=== PATIENT | male | born 1960 ===

== ENCOUNTER 2020-09-19 02:15 | Inpatient (IN) | payer MEDICAID ==
[~2020-09-19] VITALS: Ht 177.8 cm; Wt 107.7 kg
--- NOTE | 2020-09-19 02:30 | NUR ---
PT TRANSFERRED FROM [facility] FOR A FACIAL ABCESS. PT THOUGHT IT WAS A TOOTH BUT IT IS IN THE JAW AREA. HX OF HTN. MED REC COMPLETE. PT HAS NO NEEDS AT THIS TIME. CALL LIGHT IN REACH
[2020-09-19] MEDS ORDERED: LOSA50TA14 PO (02:56)
[2020-09-19] MEDS ORDERED: SIMV20TA19 PO (02:56)
[2020-09-19] MEDS ORDERED: HYDROCHLOROTH12.5 MG PO (02:56)
[2020-09-19] MEDS ORDERED: PREG225C PO (02:56)
[2020-09-19] MEDS ORDERED: TRAM50TA2 PO (02:56)
[2020-09-19] MEDS ORDERED: MELO15TA24 PO (02:56)
[2020-09-19] MEDS ORDERED: OMEG-14 PO (02:56)
[2020-09-19] MEDS ORDERED: CLON0.1T22 PO (02:56)
[2020-09-19] MEDS ORDERED: DOXA1TAB2 PO (02:56)
[2020-09-19] MEDS ORDERED: HYDR50TA99 PO (02:56)
[2020-09-19] MEDS ORDERED: MORPHINE SULFATE 4 MG/ML, 1ML IVPush PRN (03:30)
[2020-09-19] MEDS ORDERED: ONDANSETRON 2MG/ML, 2ML ONE ×2 (03:30→12:13)
[2020-09-19] MEDS ORDERED: ONDANSETRON 2MG/ML, 2ML IVPush ONE (03:30)
[2020-09-19] MEDS ORDERED: MORPHINE SULFATE 4 MG/ML, 1ML ONE (03:31)
--- NOTE | 2020-09-19 03:41 | NUR ---
PT MEDICATED FOR PAIN. PT AMBULATED TO BATHROOM WITH A STEADY GAIT. VSS. PT TO BE ADMITTED
--- NOTE | 2020-09-19 03:49 | NUR ---
COVID SWAB DONE AND WALKED TO LAB.
[2020-09-19] MEDS ORDERED: ACETAMINOPHEN 325 MG TABLET PO PRN ×3 (04:00→13:00)
[2020-09-19] MEDS ORDERED: NS + 20MEQ KCL 1,000 ML IV SCH (04:00)
[2020-09-19] MEDS ORDERED: LABETALOL 5MG/ML, 20ML IVPush PRN (04:00)
[2020-09-19] MEDS ORDERED: morphine SULFATE 10 MG/ML, 1ML IVPush PRN (04:00)
[2020-09-19] MEDS ORDERED: ONDANSETRON 2MG/ML, 2ML IVPush PRN (04:00)
[2020-09-19] MEDS: AMPICILLIN/SULBACTAM 3 GM in SODIUM CHLORIDE 0.9% 100 ML IV SCH ×3 (06:39→17:32)
[2020-09-19 07:38] VITALS: BP 122/83
[2020-09-19] MEDS ORDERED: LIDOCAINE/PF 1%, 30ML ONE (09:35)
[2020-09-19] MEDS ORDERED: EPINEPHRINE 1 MG/ML, 1ML ONE (09:36)
[2020-09-19] MEDS ORDERED: FENTANYL PF 100 MCG/2ML ONE (10:29)
[2020-09-19] MEDS ORDERED: MIDAZOLAM 1 MG/ML, 2ML ONE (10:52)
[2020-09-19] MEDS ORDERED: DEXMEDETOMIDINE 200 MCG/2 ML ONE (11:11)
[2020-09-19] MEDS ORDERED: LIDOCAINE 1%-EPI 1:100K, 30ML INFIL ONE (11:49)
[2020-09-19] MEDS ORDERED: FENTANYL PF 250 MCG/5ML ONE (11:55)
[2020-09-19] MEDS ORDERED: MEPERIDINE/PF 25MG/0.5ML IVPush PRN ×2 (12:00→13:00)
[2020-09-19] MEDS ORDERED: HYDROmorphone 2 MG/ML, 1ML IVPush PRN ×2 (12:00→13:00)
[2020-09-19] MEDS ORDERED: DIAZEPAM 5 MG/ML, 2ML IVPush PRN ×2 (12:00→13:00)
[2020-09-19] MEDS ORDERED: PROMETHAZINE 25 MG/ML, 1ML IV PRN ×2 (12:00→13:00)
[2020-09-19] MEDS ORDERED: FENTANYL PF 100 MCG/2ML IV PRN ×2 (12:00→13:00)
[2020-09-19] MEDS ORDERED: OXYcodone 5 MG/5 ML ORAL.SOL UDC PO PRN ×2 (12:00→13:00)
[2020-09-19] MEDS ORDERED: ALBUTEROL SULFATE 2.5 MG/3 ML NPPB PRN ×2 (12:00→13:00)
[2020-09-19] MEDS ORDERED: LABETALOL 5MG/ML, 20ML IV PRN ×2 (12:00→13:00)
[2020-09-19] MEDS ORDERED: KETOROLAC 30 MG/1 ML IV PRN ×2 (12:00→13:00)
[2020-09-19] MEDS ORDERED: hydrALAzine 20 MG/ML, 1ML IV PRN ×2 (12:00→13:00)
[2020-09-19] MEDS ORDERED: DEXAMETHASONE 4 MG/ML, 1ML ONE (12:13)
[2020-09-19] MEDS ORDERED: ROCURONIUM 10MG/ML,5ML ONE (12:13)
[2020-09-19] MEDS ORDERED: NEOSTIGMINE 1 MG/ML, 10ML ONE (12:13)
[2020-09-19] MEDS ORDERED: SUCCINYLCHOLINE 20 MG/ML, 10ML ONE (12:13)
[2020-09-19] MEDS ORDERED: CEFAZOLIN 1,000 MG ONE (12:13)
[2020-09-19] MEDS ORDERED: GLYCOPYRROLATE 0.2MG/1ML, 5ML ONE (12:13)
[2020-09-19] MEDS ORDERED: PROPOFOL 10 MG/ML, 20ML ONE (12:13)
[2020-09-19] MEDS: LACTATED RINGERS 1,000 ML IV SCH (17:32)
[2020-09-19 20:00] VITALS: BP 115/71
[2020-09-20] MEDS: AMPICILLIN/SULBACTAM 3 GM in SODIUM CHLORIDE 0.9% 100 ML IV SCH ×3 (00:07→11:13)
[2020-09-20 00:23] VITALS: BP 126/75
[2020-09-20 03:10] VITALS: BP 126/73
[2020-09-20 05:34] LABS: BASOPHILS % (AUTO) 1 % (0-1); EOSINOPHILS % (AUTO) 0 % (1-7); LYMPHOCYTES % (AUTO) 13 % (22-44); MEAN CORPUSCULAR HEMOGLOBIN 30.4 pg (27.5-34.5); MEAN CORPUSCULAR HGB CONC 33.3 g/dL (33.2-36.2); MONOCYTES % (AUTO) 7 % (2-9); NEUTROPHILS % (AUTO) 80 % (42-75); PLATELET COUNT 386 x10^3/uL (130-400); RED BLOOD COUNT 4.49 x10^6/uL (4.38-5.82); RED CELL DISTRIBUTION WIDTH 12.9 % (9.4-14.8)
[2020-09-20 05:45] LABS: CHLORIDE 103 mmol/L (98-107)
[2020-09-20 05:52] LABS: ANION GAP 5 mmol/L (5-15); CALCIUM 8.3 mg/dL (8.5-10.1); CREATININE 0.81 mg/dL (0.7-1.3)
[2020-09-20] MEDS: LACTATED RINGERS 1,000 ML IV SCH (05:57)
[2020-09-20 06:23] LABS: MD SCAN
[2020-09-20 08:00] VITALS: BP 128/72
[2020-09-20 12:55] VITALS: BP 132/82
[2020-09-20] MEDS ORDERED: AMOX1TAB64 PO (13:15)
[2020-09-20] MEDS ORDERED: HYDR-3240 PO (13:15)
[2020-09-20] MEDS ORDERED: DOXY-162 PO (13:15)
[2020-09-20] MEDS: PREGABALIN 75 MG CAPSULE PO ONE ×2 (13:26→13:29)
[2020-09-20] MEDS ORDERED: FLU VACC QS2020-21(6MOS UP)/PF 60MCG/0.5 ML SYR IM-VACC ONE (15:00)
== END 2020-09-20 15:50 | disposition home or self-care (01) | DRG 364 ==
LOC: ED 03:16 → EDIP 03:27 → 4NE 04:15 → DCLOUNGE 09-20 15:40
PROVIDERS: ADMIT Family Medicine; ATTEND Internal Medicine
PROC: 0J950ZZ Drainage of Left Neck Subcutaneous Tissue and Fascia, Open Approach (ICD-10-PCS; principal; 2020-09-19 11:30)
DX: L02.11 Cutaneous abscess of neck (principal); K12.2 Cellulitis and abscess of mouth; E66.9 Obesity, unspecified; E78.5 Hyperlipidemia, unspecified; E87.6 Hypokalemia; F11.20 Opioid dependence, uncomplicated; F17.210 Nicotine dependence, cigarettes, uncomplicated; G47.33 Obstructive sleep apnea (adult) (pediatric); G89.29 Other chronic pain; Z20.828 Contact with and (suspected) exposure to other viral communicable diseases; I10 Essential (primary) hypertension; K08.89 Other specified disorders of teeth and supporting structures; R63.3 Feeding difficulties; Z88.8 Allergy status to other drugs, medicaments and biological substances; Z68.34 Body mass index [BMI] 34.0-34.9, adult
CPT/HCPCS: 36415; 80048; 85025; 87070; 87075; 87077; 87205; 87635; 90686; 96374; 96375; G0378; J0171; J0295; J0690; J1100; J2250; J2405; J2704; J2710; J3010; J3480; J0330; J2270; J7120

== ENCOUNTER 2020-10-14 15:44 | Inpatient (IN) | payer MEDICAID ==
[~2020-10-14] VITALS: Ht 177.8 cm; Wt 108.8 kg
[~2020-10-14 15:44] MED LIST: AMOX1TAB64 PO; CLON0.1T22 PO; DOXA1TAB2 PO; DOXY-162 PO; HYDR-3240 PO; HYDR50TA99 PO; HYDROCHLOROTH12.5 MG PO; LOSA50TA14 PO; MELO15TA24 PO; OMEG-14 PO; PREG225C PO; SIMV20TA19 PO; TRAM50TA2 PO
[2020-10-14] MEDS ORDERED: SODIUM CHLORIDE FLUSH 10ML SYR IVF ONE (16:30)
[2020-10-14 17:00] LABS: BASOPHILS % (AUTO) 1 % (0-1); EOSINOPHILS % (AUTO) 1 % (1-7); LYMPHOCYTES % (AUTO) 23 % (22-44); MEAN CORPUSCULAR HEMOGLOBIN 30.6 pg (27.5-34.5); MEAN CORPUSCULAR HGB CONC 33.4 g/dL (33.2-36.2); MEAN PLATELET VOLUME 7.9 fL (7.4-10.4); MONOCYTES % (AUTO) 12 % (2-9); NEUTROPHILS % (AUTO) 63 % (42-75); PLATELET COUNT 193 x10^3/uL (130-400); RED BLOOD COUNT 4.36 x10^6/uL (4.38-5.82); RED CELL DISTRIBUTION WIDTH 13.1 % (9.4-14.8)
[2020-10-14 17:05] LABS: MD NO
[2020-10-14 17:08] LABS: ALBUMIN 3.1 g/dL (3.4-5.0); ANION GAP 4 mmol/L (5-15); CALCIUM 8.4 mg/dL (8.5-10.1); CHLORIDE 101 mmol/L (98-107)
[2020-10-14 17:10] LABS: CREATININE 1.22 mg/dL (0.7-1.3)
[2020-10-14] MEDS ORDERED: OMNIPAQUE 350 MG/ML, 100ML BOTTLE ONE (20:06)
--- NOTE | 2020-10-14 20:23 | NUR ---
ALL RESULTS ARE BACK AT THIS TIME. CHART UP FOR RECHECK.
[2020-10-14] MEDS ORDERED: TRAM100T33 PO (21:18)
[2020-10-14] MEDS ORDERED: ACET-76 PO (21:18)
--- NOTE | 2020-10-14 21:21 | NUR ---
PT AMBULATED TO RESTROOM WITH STEADY GAIT.
[2020-10-14] MEDS ORDERED: ONDANSETRON 2MG/ML, 2ML ONE (21:27)
[2020-10-14] MEDS ORDERED: MORPHINE SULFATE 4 MG/ML, 1ML ONE (21:28)
[2020-10-14] MEDS ORDERED: MORPHINE SULFATE 4 MG/ML, 1ML IVPush PRN (21:30)
[2020-10-14] MEDS ORDERED: AMPICILLIN/SULBACTAM 3 GM in SODIUM CHLORIDE 0.9% 100 ML IV ONE (21:30)
[2020-10-14] MEDS ORDERED: SODIUM CHLORIDE FLUSH 10ML SYR IVF PRN (21:30)
[2020-10-14] MEDS ORDERED: ONDANSETRON 2MG/ML, 2ML IVPush ONE (21:30)
--- NOTE | 2020-10-14 22:58 | NUR ---
REPORT GIVEN TO JENIFER MCGILL.
[2020-10-14 23:40] VITALS: BP 137/77
[2020-10-15] MEDS ORDERED: PROMETHAZINE 25 MG/ML, 1ML IM PRN
[2020-10-15] MEDS ORDERED: LABETALOL 5MG/ML, 20ML IVPush PRN
[2020-10-15] MEDS ORDERED: VANCOMYCIN PER PHARMACY MC PRN
[2020-10-15] MEDS ORDERED: VANCOMYCIN PMX 1GM/200ML 200 ML IV ONE
[2020-10-15] MEDS ORDERED: BISACODYL 10 MG SUPP PR PRN
[2020-10-15] MEDS ORDERED: DOCUSATE 100 MG CAPSULE PO PRN
[2020-10-15] MEDS ORDERED: POLYETHYLENE GLYCOL 17 GM PACKET PO PRN
[2020-10-15] MEDS ORDERED: ONDANSETRON ODT 4 MG PO PRN
[2020-10-15] MEDS ORDERED: PHARMACOKINETIC MONITORING MC PRN (00:30)
[2020-10-15] MEDS ORDERED: VANCOMYCIN 2,500 MG in SODIUM CHLORIDE 0.9% 500 ML IV ONE (00:30)
[2020-10-15] MEDS ORDERED: PHARMACOKINETIC CONSULTATION MC ONE (00:30)
[2020-10-15 00:48] LABS: FREE T4 (FREE THYROXINE) 1.14 ng/dL (0.76-1.46)
[2020-10-15] MEDS: SODIUM CHLORIDE 0.9% 1,000 ML IV SCH ×2 (00:56→16:12)
[2020-10-15] MEDS: morphine SULFATE 10 MG/ML, 1ML IVPush PRN ×3 (01:18→09:27)
[2020-10-15 04:05] VITALS: BP 113/69
[2020-10-15] MEDS: AMPICILLIN/SULBACTAM 3 GM in SODIUM CHLORIDE 0.9% 100 ML IV SCH ×4 (04:09→23:23)
[2020-10-15 08:11] LABS: BASOPHILS % (AUTO) 1 % (0-1); EOSINOPHILS % (AUTO) 1 % (1-7); LYMPHOCYTES % (AUTO) 18 % (22-44); MEAN CORPUSCULAR HEMOGLOBIN 30.6 pg (27.5-34.5); MEAN CORPUSCULAR HGB CONC 33.4 g/dL (33.2-36.2); MEAN PLATELET VOLUME 8.4 fL (7.4-10.4); MONOCYTES % (AUTO) 11 % (2-9); NEUTROPHILS % (AUTO) 70 % (42-75); PLATELET COUNT 216 x10^3/uL (130-400); RED BLOOD COUNT 4.34 x10^6/uL (4.38-5.82)
[2020-10-15 08:15] LABS: MD NO
[2020-10-15 08:21] LABS: ALANINE AMINOTRANSFERASE 13 U/L (12-78); ALBUMIN 2.7 g/dL (3.4-5.0); ANION GAP 8 mmol/L (5-15); CALCIUM 8.2 mg/dL (8.5-10.1); CHLORIDE 106 mmol/L (98-107); CHOLESTEROL, TOTAL 151 mg/dL (140-239); CREATININE 0.87 mg/dL (0.7-1.3)
[2020-10-15 08:23] LABS: ALKALINE PHOSPHATASE 76 U/L (45-117); CHOL/HDL RATIO 3.9; HDL CHOL % 26 % (26-37); HDL CHOLESTEROL (DIRECT) 39 mg/dL (40-60); LDL CHOLESTEROL,CALCULATED 85 mg/dL (54-169); LDL/HDL RATIO 2.2 (0.5-3.0); TOTAL PROTEIN 6.4 g/dL (6.4-8.2); TRIGLYCERIDES 134 mg/dL (50-200); VLDL CHOLESTEROL 27 mg/dL (0-25)
[2020-10-15 08:59] VITALS: BP 118/73
[2020-10-15] MEDS: OMEGA-3/FISH OIL CAPSULE PO SCH (09:00)
[2020-10-15] MEDS ORDERED: HYDROCHLOROTHIAZIDE 12.5 MG CAPSULE PO SCH (09:00)
[2020-10-15] MEDS: PREGABALIN 75 MG CAPSULE PO SCH ×2 (09:01→20:05)
[2020-10-15] MEDS: DOXAZOSIN 1MG TABLET PO SCH (09:01)
[2020-10-15] MEDS: LOSARTAN 50MG TABLET PO SCH (09:01)
[2020-10-15] MEDS ORDERED: VANCOMYCIN 2,000 MG in SODIUM CHLORIDE 0.9% 500 ML IV ONE ×2 (13:00→17:00)
[2020-10-15] MEDS ORDERED: CHLORHEXIDINE 15 ML UDC ONE (13:56)
[2020-10-15] MEDS ORDERED: CHLORHEXIDINE 15 ML UDC MM STA (13:57)
[2020-10-15] MEDS ORDERED: MIDAZOLAM 1 MG/ML, 2ML ONE (14:05)
[2020-10-15] MEDS ORDERED: FENTANYL PF 100 MCG/2ML ONE ×3 (14:05→21:35)
[2020-10-15] MEDS ORDERED: DEXAMETHASONE 4 MG/ML, 1ML ONE (14:40)
[2020-10-15] MEDS ORDERED: PROPOFOL 10 MG/ML, 20ML ONE (14:40)
[2020-10-15] MEDS ORDERED: ONDANSETRON 2MG/ML, 2ML ONE (14:40)
[2020-10-15] MEDS ORDERED: LIDOCAINE-MPF 2% ,5ML ONE (14:40)
[2020-10-15] MEDS ORDERED: SUCCINYLCHOLINE 20 MG/ML, 10ML ONE (14:40)
[2020-10-15] MEDS ORDERED: HYDROmorphone 1 MG/ML, 1ML INJ ONE (14:56)
[2020-10-15] MEDS: FENTANYL PF 100 MCG/2ML IV PRN ×2 (14:58→15:04)
[2020-10-15] MEDS ORDERED: PROMETHAZINE 25 MG/ML, 1ML IVPush PRN ×2 (15:00→22:00)
[2020-10-15] MEDS ORDERED: hydrALAzine 20 MG/ML, 1ML IV PRN ×2 (15:00→22:00)
[2020-10-15] MEDS ORDERED: HYDROmorphone 1 MG/ML, 1ML INJ IVPush PRN ×2 (15:00→22:00)
[2020-10-15] MEDS ORDERED: LABETALOL 5MG/ML, 20ML IV PRN ×2 (15:00→22:00)
[2020-10-15] MEDS ORDERED: ALBUTEROL SULFATE 2.5 MG/3 ML NPPB PRN (15:00)
[2020-10-15] MEDS ORDERED: MIDAZOLAM 1 MG/ML, 2ML IV PRN (15:00)
[2020-10-15] MEDS ORDERED: LABETALOL 5MG/ML, 20ML ONE (15:08)
[2020-10-15] MEDS ORDERED: VANCOMYCIN 2,000 MG in SODIUM CHLORIDE 0.9% 250 ML IV SCH (18:00)
[2020-10-15] MEDS: LACTATED RINGERS 1,000 ML IV SCH (19:54)
[2020-10-15 20:04] VITALS: BP 114/70
[2020-10-15] MEDS: SIMVASTATIN 20 MG TABLET PO SCH (20:06)
[2020-10-15] MEDS ORDERED: LIDOCAINE 1%, 20ML ONE (21:11)
[2020-10-15] MEDS ORDERED: BUPIVACAINE/PF 0.25% ONE (21:11)
[2020-10-15] MEDS ORDERED: EPINEPHRINE 1 MG/ML, 1ML ONE (21:11)
[2020-10-15] MEDS ORDERED: OXYcodone 5 MG/5 ML ORAL.SOL UDC PO PRN (22:00)
[2020-10-15] MEDS ORDERED: FENTANYL PF 100 MCG/2ML IV PRN (22:00)
[2020-10-15] MEDS ORDERED: ACETAMINOPHEN 325 MG TABLET PO PRN ×2 (22:00)
[2020-10-15] MEDS ORDERED: PROMETHAZINE 25 MG SUPP PR PRN (22:00)
[2020-10-15] MEDS ORDERED: METOPROLOL 1 MG/ML, 5ML IV PRN (22:00)
[2020-10-15] MEDS ORDERED: ONDANSETRON 2MG/ML, 2ML IVPush PRN ×2 (22:00)
[2020-10-15] MEDS ORDERED: LORazepam 2 MG/ML, 1ML IVPush PRN (22:00)
[2020-10-16 01:12] VITALS: BP 121/79
[2020-10-16] MEDS: AMPICILLIN/SULBACTAM 3 GM in SODIUM CHLORIDE 0.9% 100 ML IV SCH ×3 (05:58→18:04)
[2020-10-16 06:10] LABS: BASOPHILS % (AUTO) 1 % (0-1); EOSINOPHILS % (AUTO) 0 % (1-7); LYMPHOCYTES % (AUTO) 11 % (22-44); MD NO; MEAN CORPUSCULAR HEMOGLOBIN 30.9 pg (27.5-34.5); MEAN PLATELET VOLUME 7.8 fL (7.4-10.4); MONOCYTES % (AUTO) 6 % (2-9); NEUTROPHILS % (AUTO) 83 % (42-75); PLATELET COUNT 240 x10^3/uL (130-400); RED CELL DISTRIBUTION WIDTH 13.1 % (9.4-14.8)
[2020-10-16 06:22] LABS: ANION GAP 2 mmol/L (5-15); CALCIUM 8.5 mg/dL (8.5-10.1); CHLORIDE 107 mmol/L (98-107); CREATININE 0.64 mg/dL (0.7-1.3)
[2020-10-16] MEDS ORDERED: VANCOMYCIN 2,000 MG in SODIUM CHLORIDE 0.9% 500 ML IV ONE (08:00)
[2020-10-16] MEDS ORDERED: CHLORHEXIDINE GLUCONATE MOUTHWASH 0.12%, 473ML MM SCH (09:00)
[2020-10-16 09:38] VITALS: BP 114/64
[2020-10-16] MEDS: PREGABALIN 75 MG CAPSULE PO SCH ×2 (09:38→21:39)
[2020-10-16] MEDS: DOXAZOSIN 1MG TABLET PO SCH (09:38)
[2020-10-16] MEDS: OMEGA-3/FISH OIL CAPSULE PO SCH (09:38)
[2020-10-16] MEDS: LACTATED RINGERS 1,000 ML IV SCH (09:39)
[2020-10-16] MEDS: LOSARTAN 50MG TABLET PO SCH (09:39)
[2020-10-16] MEDS: OXYcodone IR 5MG TABLET PO PRN ×2 (09:56→20:23)
[2020-10-16] MEDS: VANCOMYCIN 2,000 MG in SODIUM CHLORIDE 0.9% 500 ML IV SCH ×2 (10:00→21:00)
[2020-10-16] MEDS: CHLORHEXIDINE 15 ML UDC MM SCH ×2 (10:00→21:39)
[2020-10-16] MEDS ORDERED: VANCOMYCIN 2,000 MG in SODIUM CHLORIDE 0.9% 500 ML IV SCH (11:00)
[2020-10-16 13:56] VITALS: BP 105/61
[2020-10-16] MEDS ORDERED: POTASSIUM PHOSPHATE 22 MEQ in SODIUM CHLORIDE 0.9% 500 ML IV ONE (17:30)
[2020-10-16] MEDS: NICOTINE 14MG/24 HR PATCH.TD24 TD SCH (18:08)
[2020-10-16 20:44] VITALS: BP 143/75
[2020-10-16] MEDS: SIMVASTATIN 20 MG TABLET PO SCH (21:00)
[2020-10-17] MEDS: AMPICILLIN/SULBACTAM 3 GM in SODIUM CHLORIDE 0.9% 100 ML IV SCH ×5 (00:15→23:53)
[2020-10-17 00:18] VITALS: BP 113/67
[2020-10-17 09:00] VITALS: BP 113/70
[2020-10-17] MEDS: VANCOMYCIN 2,000 MG in SODIUM CHLORIDE 0.9% 500 ML IV SCH ×2 (09:00→19:57)
[2020-10-17] MEDS: DOXAZOSIN 1MG TABLET PO SCH (10:42)
[2020-10-17] MEDS: OMEGA-3/FISH OIL CAPSULE PO SCH (10:42)
[2020-10-17] MEDS: CHLORHEXIDINE 15 ML UDC MM SCH ×2 (10:42→19:56)
[2020-10-17] MEDS: LOSARTAN 50MG TABLET PO SCH (10:42)
[2020-10-17] MEDS: LACTATED RINGERS 1,000 ML IV SCH (12:58)
[2020-10-17] MEDS: PREGABALIN 75 MG CAPSULE PO SCH ×2 (12:58→19:57)
[2020-10-17] MEDS: OXYcodone IR 5MG TABLET PO PRN ×3 (13:14→22:10)
[2020-10-17 14:30] VITALS: BP 146/85
[2020-10-17] MEDS: NICOTINE 14MG/24 HR PATCH.TD24 TD SCH (14:41)
[2020-10-17 19:44] VITALS: BP 148/81
[2020-10-17] MEDS: SIMVASTATIN 20 MG TABLET PO SCH (19:57)
[2020-10-18 02:25] VITALS: BP 129/77
[2020-10-18] MEDS: LACTATED RINGERS 1,000 ML IV SCH ×2 (02:32→12:30)
[2020-10-18] MEDS: AMPICILLIN/SULBACTAM 3 GM in SODIUM CHLORIDE 0.9% 100 ML IV SCH ×3 (05:35→18:00)
[2020-10-18 09:03] VITALS: BP 166/79
[2020-10-18] MEDS: PREGABALIN 75 MG CAPSULE PO SCH (09:05)
[2020-10-18] MEDS: CHLORHEXIDINE 15 ML UDC MM SCH (09:06)
[2020-10-18] MEDS: VANCOMYCIN 2,000 MG in SODIUM CHLORIDE 0.9% 500 ML IV SCH (09:06)
[2020-10-18] MEDS: DOXAZOSIN 1MG TABLET PO SCH (09:06)
[2020-10-18] MEDS: OMEGA-3/FISH OIL CAPSULE PO SCH (09:06)
[2020-10-18] MEDS: LOSARTAN 50MG TABLET PO SCH (09:06)
[2020-10-18] MEDS: OXYcodone IR 5MG TABLET PO PRN (09:30)
[2020-10-18] MEDS ORDERED: SODIUM PHOSPHATE 10 MMOL in SODIUM CHLORIDE 0.9% 500 ML IV ONE (10:00)
[2020-10-18 14:00] VITALS: BP 119/77
[2020-10-18] MEDS: NICOTINE 14MG/24 HR PATCH.TD24 TD SCH (15:07)
[2020-10-18] MEDS ORDERED: ONDA4TAB13 PO (15:14)
[2020-10-18] MEDS ORDERED: LACT1CAP11 PO (15:14)
[2020-10-18] MEDS ORDERED: OXYC5TAB3 PO (15:14)
[2020-10-18] MEDS ORDERED: AMOX1TAB64 PO (15:14)
== END 2020-10-18 18:17 | disposition home or self-care (01) | DRG 92 ==
LOC: ED 21:10 → EDIP 21:15 → ED 21:27 → 3WST 23:12
PROVIDERS: ADMIT Internal Medicine; ATTEND Internal Medicine
PROC: 0J950ZZ Drainage of Left Neck Subcutaneous Tissue and Fascia, Open Approach (ICD-10-PCS; 2020-10-15)
PROC: 0CDXXZ1 Extraction of Lower Tooth, Multiple, External Approach (ICD-10-PCS; 2020-10-15)
PROC: 0J910ZZ Drainage of Face Subcutaneous Tissue and Fascia, Open Approach (ICD-10-PCS; 2020-10-15)
PROC: 0NQV0ZZ Repair Left Mandible, Open Approach (ICD-10-PCS; principal; 2020-10-15 14:00)
DX: K04.7 Periapical abscess without sinus (principal); E66.9 Obesity, unspecified; E78.5 Hyperlipidemia, unspecified; F17.210 Nicotine dependence, cigarettes, uncomplicated; G47.33 Obstructive sleep apnea (adult) (pediatric); G89.29 Other chronic pain; I10 Essential (primary) hypertension; K02.9 Dental caries, unspecified; K05.30 Chronic periodontitis, unspecified; K12.2 Cellulitis and abscess of mouth; L02.11 Cutaneous abscess of neck; L71.0 Perioral dermatitis; M27.2 Inflammatory conditions of jaws; Z91.19 Patient's noncompliance with other medical treatment and regimen; Z98.1 Arthrodesis status; Z88.8 Allergy status to other drugs, medicaments and biological substances; Z91.018 Allergy to other foods; Z68.34 Body mass index [BMI] 34.0-34.9, adult
CPT/HCPCS: J3490 ×2; 36415; 70100; 70491; 80048; 80053; 80061; 80202; 82040; 83036; 83735; 84100; 84439; 84443; 85025; 86140; 87070; 87075; 87205; 87635; 96374; 96375; G0378; J0171; J0295; J1100; J1170; J2250; J2405; J2704; J3010; J3370; Q9967; J0330; J2270; J7030; J7040; J7120